=== PATIENT | male | born 1950 | race Two or more races ===

== ENCOUNTER 2019-02-14 12:06 | Inpatient (IN) | payer MEDICARE, MEDICAID ==
[~2019-02-14] VITALS: Ht 180.3 cm; Wt 226.0 kg
[2019-02-14] MEDS ORDERED: methylPREDNISolone SOD SUCC 125 MG/2 ML VL IV ONE (12:45)
[2019-02-14] MEDS ORDERED: ALBUTEROL SULF 2.5 MG/0.5ML(0.5%) NEB SOLN HHN ONE (12:45)
[2019-02-14] MEDS ORDERED: IPRATROPIUM BROM 0.5 MG/2.5ML INH SOL HHN ONE (12:45)
[2019-02-14 13:37] LABS: Basophils # (auto) 0 uL; Basophils % (auto) 0.1 % (0.0-2.0); Eosinophils # (auto) 0.1 uL; Eosinophils % (auto) 1.4 % (0.0-7.0); Lymphocytes # (auto) 1.1 uL; Lymphocytes % (auto) 12.1 % (10.0-50.0); Mean Corpuscular Hemoglobin 32.7 pg (28.0-32.0); Mean Corpuscular Hgb Conc. 33.2 g/dL (32.0-36.0); Mean Corpuscular Volume 98.5 fL (80.0-100.0); Monocytes # (auto) 0.6 uL; Monocytes % (auto) 6.4 % (0.0-12.0); Neutrophils # (auto) 7.5 uL; Platelet Count (auto) 166 10^3/uL (140-450); Red Blood Cells 4.88 10^6/uL (4.5-5.90); Red Cell Distribution Width 14.8 % (11.8-14.3); White Blood Cell 9.4 10^3/uL (4.4-10.8)
[2019-02-14 13:48] LABS: Magnesium 2.4 mg/dL (1.6-2.6)
[2019-02-14] MEDS ORDERED: FUROSEMIDE 40 MG/4 ML VIAL IV ONE (14:30)
[2019-02-14] MEDS ORDERED: ONDANSETRON HCL 4 MG/2 ML VIAL IV PRN (15:30)
[2019-02-14] MEDS ORDERED: HYDROcodone-ACET 5/325MG TAB PO PRN (15:30)
[2019-02-14] MEDS ORDERED: NITROGLYCERIN 0.4 MG SL TAB SL PRN (15:30)
[2019-02-14] MEDS ORDERED: MORPHINE SULF INJ 2 MG/ML SYRINGE 1ML IV PRN ×2 (15:30)
[2019-02-14] MEDS ORDERED: ACETAMINOPHEN 500 MG TAB PO PRN (15:30)
[2019-02-14 15:58] LABS: Anion Gap 6 (5-15); BUN/Creatinine Ratio 26.5; Blood Urea Nitrogen 18 mg/dL (7-18); Calcium 7.8 mg/dL (8.5-10.1); Carbon Dioxide 26 mmol/L (21-32); Chloride 107 mmol/L (98-107); GFR African American 149 mL/min; GFR Non-African American 123 mL/min; Glucose 114 mg/dL (74-106); Sodium 139 mmol/L (136-145)
[2019-02-14] MEDS: ALBUTEROL SULF 2.5 MG/0.5ML(0.5%) NEB SOLN NEB SCH (18:24)
[2019-02-14] MEDS: IPRATROPIUM BROM 0.5 MG/2.5ML INH SOL NEB SCH (18:25)
--- NOTE | 2019-02-14 18:41 | NUR ---
CLOSING SHIFT NOTE Patient is AOx4 in bed exhibiting no S/S of SOB, pain, or distress. Bed is locked and in lowest position. Call light within reach, told him to call if he requires assistance. Patient verbalized understanding. Will endorse care to principal embedded software engineer nurse. Signed: 02/14/19 at 1846 by MILAGRO LEIVA SN <Co-Signature Required> Co-Signed: 02/14/19 at 1846 by Kristin De Jesus RN
--- NOTE | 2019-02-14 18:42 | NUR ---
patient in the ER please disregard previous note, patient is still in the ER department .
[2019-02-14 19:30] VITALS: BP 126/65
--- NOTE | 2019-02-14 19:30 | NUR ---
Telemetry admit from ER SKY SELBY admitted to Telemetry unit after SBAR received. Patient oriented to RUSSELL MANN RN primary RN, unit, room, bed, and unit policies regarding patient care and visiting hours. Patient now on continuous telemetry monitoring, tele box # 31. Patient placed on bedside oxygen, weighed by bedscale and encouraged to call if they need something. All questions and concerns addressed, patient verbalized understanding.
[2019-02-14 19:40] VITALS: BP 123/52
[2019-02-14 21:04] VITALS: BP 126/65
[2019-02-14] MEDS ORDERED: PNEUMOCOCCAL VACC POLYS 25 MCG/0.5 ML VIAL IM ONE (21:15)
[2019-02-14] MEDS: METOPROLOL TARTRATE 25 MG TAB PO SCH (21:31)
[2019-02-14] MEDS ORDERED: ATORVASTATIN 20 MG TAB PO SCH (22:00)
--- NOTE | 2019-02-14 22:00 | NUR ---
Hospitalist paged: Hospitalist paged due to patient requesting to have a PRN cough medication just in case he begins to cough and cannot stop. Hospitalist returned paged immediately and new orders were received and verified.
[2019-02-15 05:11] VITALS: BP 113/67
[2019-02-15 05:13] LABS: Basophils # (auto) 0 uL; Eosinophils # (auto) 0 uL; Hematocrit 44.3 % (41.0-53.0); Hemoglobin 15.1 g/dL (13.5-17.5); Lymphocytes # (auto) 0.6 uL; Lymphocytes % (auto) 6.3 % (10.0-50.0); Mean Corpuscular Hemoglobin 33.5 pg (28.0-32.0); Mean Corpuscular Hgb Conc. 34.1 g/dL (32.0-36.0); Mean Corpuscular Volume 98.1 fL (80.0-100.0); Monocytes # (auto) 0.3 uL; Monocytes % (auto) 3.6 % (0.0-12.0); Neutrophils # (auto) 8.6 uL; Neutrophils % (auto) 90.1 % (37.0-80.0); Platelet Count (auto) 152 10^3/uL (140-450); Red Blood Cells 4.52 10^6/uL (4.5-5.90); White Blood Cell 9.6 10^3/uL (4.4-10.8)
[2019-02-15 05:26] LABS: Albumin 2.4 g/dL (3.4-5.0); Anion Gap 4 (5-15); Blood Urea Nitrogen 18 mg/dL (7-18); Calcium 7.6 mg/dL (8.5-10.1); Carbon Dioxide 27 mmol/L (21-32); Chloride 109 mmol/L (98-107); Glucose 162 mg/dL (74-106); Potassium 4.2 mmol/L (3.5-5.1); Sodium 140 mmol/L (136-145)
[2019-02-15 05:31] LABS: Alanine Aminotransferase 23 U/L (16-61); Alkaline Phosphatase 95 U/L (45-117); Aspartate Aminotransferase 31 U/L (15-37); Cholesterol 127 mg/dL (< 200); GFR African American 165 mL/min; GFR Non-African American 137 mL/min; HDL Cholesterol 63 mg/dL (40-59); LDL Cholesterol 70 mg/dL (< 100); Triglycerides 46 mg/dL (< 150)
[2019-02-15] MEDS: ALBUTEROL SULF 2.5 MG/0.5ML(0.5%) NEB SOLN NEB SCH ×3 (06:47→19:01)
[2019-02-15] MEDS: IPRATROPIUM BROM 0.5 MG/2.5ML INH SOL NEB SCH ×3 (06:47→19:00)
--- NOTE | 2019-02-15 07:42 | NUR ---
Opening Shift Note Assumed care of patient, sitting up in bed enjoying breakfast. Patient is awake and alert x4. No S/S of distress/SOB or pain. Specialty bed in lowest locked position, bed side rails up x2 and call light within reach. Instructed on POC and to call for assist PRN, will continue to monitor for changes Q1hr and PRN.
[2019-02-15 08:20] VITALS: BP 92/55
[2019-02-15 09:00] VITALS: BP 97/55
[2019-02-15] MEDS: FUROSEMIDE 40 MG/4 ML VIAL IV SCH (09:34)
[2019-02-15] MEDS: cefTRIAXone 1GM/50ML D5W 50 ML IV SCH (09:35)
[2019-02-15] MEDS: FAMOTIDINE 20 MG TAB PO SCH (09:36)
[2019-02-15] MEDS: ENOXAPARIN SOD 40 MG/0.4 ML SYRINGE SC SCH (09:36)
[2019-02-15] MEDS: METOPROLOL TARTRATE 25 MG TAB PO SCH (09:36)
[2019-02-15] MEDS ORDERED: AZITHROMYCIN 500MG/ 250ML 250 ML IV SCH (10:00)
[2019-02-15] MEDS ORDERED: POTASSIUM CHL 20 Meq TABLET PO ONE (10:30)
[2019-02-15] MEDS ORDERED: OPTISON 3ml Vial for INJ IV ONE (11:18)
[2019-02-15 13:00] VITALS: BP 138/84
[2019-02-15 16:57] VITALS: BP 120/77
--- NOTE | 2019-02-15 19:00 | NUR ---
Opening Shift Note Assumed care of patient, awake and alert. No S/S of distress/SOB or pain. Instructed on POC and to call for assist PRN, will continue to monitor for changes Q1hr and PRN.
[2019-02-15] MEDS: guaiFENesin-DM 100/10mg/5ml SYR PO PRN (19:44)
[2019-02-15 22:00] VITALS: BP 96/46
[2019-02-16 05:15] LABS: Calcium 7.7 mg/dL (8.5-10.1)
[2019-02-16 05:37] VITALS: BP 102/59
[2019-02-16] MEDS: ALBUTEROL SULF 2.5 MG/0.5ML(0.5%) NEB SOLN NEB SCH ×3 (06:38→18:25)
[2019-02-16] MEDS: IPRATROPIUM BROM 0.5 MG/2.5ML INH SOL NEB SCH ×3 (06:38→18:26)
--- NOTE | 2019-02-16 07:40 | NUR ---
Opening Note Received report from night auditor RN. Patient is awake, alert and oriented x4. No signs or symptoms of distress noted at this time. Patient is on 3L NC, shortness of breath on exertion. Patient denies pain at this time. Reviewed plan of care with patient, patient verbalized understanding. Bed in low and locked position, call light within reach. Will continue to monitor Q1 hour and PRN.
[2019-02-16 08:38] VITALS: BP 149/91
[2019-02-16] MEDS: cefTRIAXone 1GM/50ML D5W 50 ML IV SCH (09:27)
[2019-02-16] MEDS: POTASSIUM CHL 20 Meq TABLET PO SCH (09:28)
[2019-02-16] MEDS: FUROSEMIDE 40 MG/4 ML VIAL IV SCH (09:29)
[2019-02-16] MEDS: FAMOTIDINE 20 MG TAB PO SCH (09:29)
[2019-02-16] MEDS: ENOXAPARIN SOD 40 MG/0.4 ML SYRINGE SC SCH (09:34)
[2019-02-16] MEDS ORDERED: AZITHROMYCIN 250 MG TAB PO SCH (10:00)
--- NOTE | 2019-02-16 11:10 | NUR ---
urine sample collected and sent to lab
[2019-02-16 11:42] LABS: Urine WBC None Seen /hpf (0 - 3)
--- NOTE | 2019-02-16 11:58 | NUR ---
PT. FOUND OFF HIS O2, ON RA SITTING UP AT BEDSIDE VISITING WITH FAMILY. BS ARE DIMINISHED AND CLEAR. SP02 94%. NO RESP. DISTRESS NOTED, VITALS ARE STABLE. O2 IS ON 2LPM NC, AT BEDSIDE IF PT. IS IN NEED, FOR SOB. Addendum: 02/16/19 at 1204 by Shahrzad Lawson RT Amended: Links added.
[2019-02-16 12:27] LABS: Urine Bacteria NONE SEEN /hpf (None Seen); Urine Blood Negative /uL (Negative); Urine Specific Gravity 1.007 (1.001-1.035)
[2019-02-16 12:31] VITALS: BP 146/97
--- NOTE | 2019-02-16 13:12 | NUR ---
Dr. Sands at bedside Updating patient and family on plan of care. Will continue to monitor Q1 hour and PRN.
[2019-02-16 17:00] VITALS: BP 135/91
--- NOTE | 2019-02-16 18:40 | NUR ---
Respiratory note: ASKED PT IF HE WANTS TO WEAR BIPAP TONIGHT. PT REFUSED, AWARE TO NOTIFY RN IF BIPAP IS NEEDED. PT REMAINS ON ROOM AIR, NONCOMPLIANT WITH WEARING OXYGEN. NO RESPIRATORY DISTRESS NOTED, WILL CONTINUE TO MONITOR.
--- NOTE | 2019-02-16 19:30 | NUR ---
OPENING NOTE REPORT RECEIVED FROM DAY SHIFT RN PATIENT A/OX4, BRUNEIAN SPEAKING, ABLE TO VERBALIZE ALL NEEDS. PHYSICAL ASSESSMENT DONE-SEE INTERVENTIONS. NO SOB OR DISTRESS NOTED. PATIENT ON 3L NC, SPO2 AT 94%.FAMILY AT BEDSIDE. POC DISCUSSED, ALL QUESTIONS ANSWERED. WILL MONITOR Q1H PRN THROUGHOUT SHIFT, CALL LIGHT WITHIN REACH.
[2019-02-16] MEDS: guaiFENesin-DM 100/10mg/5ml SYR PO PRN (20:36)
[2019-02-16 22:00] VITALS: BP 106/68
--- NOTE | 2019-02-17 00:30 | NUR ---
Respiratory note: PAGED TO BEDSIDE FOR BIPAP. RADIOLOGIC TECHNOLOGIST MAMMOGRAM AT BEDSIDE, PT STATES HE IS ANXIOUS. PT NONCOMPLIANT WITH NASAL CANNULA, SPO2 93% ON ROOM AIR, NO RESPIRATORY DISTRESS NOTED. ASKED PT IF HE WANTS TO TRY BIPAP AND HE COMPLAINS OF FEELING SUFFOCATED WHEN WEARING THE BIPAP. PT GIVEN MED NEB TX AT THIS TIME. PT APPEARS LESS ANXIOUS, RN AWARE. WILL CONTINUE TO MONITOR.
[2019-02-17] MEDS: ALBUTEROL SULF 2.5 MG/0.5ML(0.5%) NEB SOLN NEB SCH ×3 (00:38→12:36)
[2019-02-17] MEDS: IPRATROPIUM BROM 0.5 MG/2.5ML INH SOL NEB SCH ×3 (00:38→12:36)
--- NOTE | 2019-02-17 00:38 | NUR ---
HOSPITALIST PAGED RE: PATIENT ANXIOUS AND REQUESTING "SOMETHING FOR ANXIETY"
[2019-02-17] MEDS: guaiFENesin-DM 100/10mg/5ml SYR PO PRN (00:49)
--- NOTE | 2019-02-17 00:52 | NUR ---
NONCOMPLIANCE PATIENT FOUND WITH NASAL CANNULA OFF AND PATIENT STATES HE GETS SOB. EDUCATED PATIENT TO KEEP OXYGEN ON TO PREVENT SOB. PATIENT VERBALIZED UNDERSTANDING
--- NOTE | 2019-02-17 00:56 | NUR ---
RECEIVED CALL BACK FROM HOSPITALIST RAFI NEW ORDER RECEIVED. ORDER READ BACK AND VERIFIED WILL CARRY OUT ORDER
[2019-02-17] MEDS ORDERED: TEMAZEPAM 15 MG CAP PO ONE (01:00)
[2019-02-17 05:00] VITALS: BP 142/84
--- NOTE | 2019-02-17 07:07 | NUR ---
CLOSING REPORT ENDORSED TO DAY SHIFT RN PATIENT IS SLEEPING, VISIBLE RISE AND FALL OF CHEST NOTED. NO S/S OF DISTRESS. CALL LIGHT WITHIN REACH
[2019-02-17 08:49] VITALS: BP 140/96
[2019-02-17] MEDS: ENOXAPARIN SOD 40 MG/0.4 ML SYRINGE SC SCH (10:00)
--- NOTE | 2019-02-17 10:15 | NUR ---
Dr. Holguin at bedside Updating patient on plan of care. Aircraft Structural Repairer at bedside. Will continue to monitor Q1 hour and PRN.
[2019-02-17] MEDS: POTASSIUM CHL 20 Meq TABLET PO SCH (10:17)
[2019-02-17] MEDS: FAMOTIDINE 20 MG TAB PO SCH (10:17)
[2019-02-17] MEDS: FUROSEMIDE 40 MG/4 ML VIAL IV SCH (10:18)
[2019-02-17] MEDS ORDERED: ALBUAER3 IN (11:17)
[2019-02-17] MEDS ORDERED: FURO1TAB31 PO (11:17)
[2019-02-17] MEDS ORDERED: POTA-220 PO (11:17)
[2019-02-17 12:21] VITALS: BP 140/96
--- NOTE | 2019-02-17 12:36 | NUR ---
Respiratory note: AT BEDSIDE FOR SCHEDULED MEDNEB TX. TX NOT GIVEN, PT REFUSING AT THIS TIME, WANTS TO EAT HIS LUNCH. NO S/S OF RESPIRATORY DISTRESS. ADVISED PT TO CALL FOR RT IF HE CHANGES HIS MIND.
[2019-02-17 13:00] VITALS: BP 161/92
--- NOTE | 2019-02-17 15:11 | NUR ---
DISCHARGE Discharge instructions given as ordered. Encouraged to follow up with primary care physician as instructed. All questions and concerns addressed. Patient verbalized understanding. Medication reconciliation form completed and copy given to patient. IV catheter removed, pressure dressing applied. vehicle monitor technician removed and sent back to ICU. Patient taken down to private vehicle via wheelchair, with all personal belongings, accompanied by staff and family members. No signs or symptoms of distress noted at this time.
== END 2019-02-17 15:40 | disposition home health service (06) | DRG 291 ==
LOC: ER 12:06 → TELE 12:07 → TELE-CENTR 19:28
PROVIDERS: ADMIT Nurse Practitioner Acute Care; ATTEND Internal Medicine
PROC: 5A09357 Assistance with Respiratory Ventilation, Less than 24 Consecutive Hours, Continuous Positive Airway Pressure (ICD-10-PCS; principal; 2019-02-14)
DX: I11.0 Hypertensive heart disease with heart failure (principal); J96.00 Acute respiratory failure, unspecified whether with hypoxia or hypercapnia; Z68.44 Body mass index [BMI] 60.0-69.9, adult; I50.43 Acute on chronic combined systolic (congestive) and diastolic (congestive) heart failure; E66.01 Morbid (severe) obesity due to excess calories; G47.33 Obstructive sleep apnea (adult) (pediatric); J45.909 Unspecified asthma, uncomplicated; Z91.19 Patient's noncompliance with other medical treatment and regimen; Z23 Encounter for immunization
CPT/HCPCS: 36415; 36600; 71045; 80048; 80053; 80061; 81001; 82805; 83036; 83605; 83735; 83880; 84484; 85025; 87040; 87070; 87205; 87804; 93005; 93306; 93970; 94640; 94644; 94660; 94761; 96365; 96367; 96375; G0378; J0696; Q9956

== ENCOUNTER 2022-05-05 23:26 | Inpatient (IN) | payer OTHER ==
[~2022-05-05] VITALS: Ht 180.3 cm; Wt 207.0 kg
[~2022-05-05 23:26] MED LIST: ALBUAER3 IN; FURO1TAB31 PO; POTA-220 PO
[2022-05-06 00:27] LABS: Basophils # (auto) 0 10 ^3/uL (0-0.2); Basophils % (auto) 0.6 % (0.0-2.0); Eosinophils # (auto) 0.4 10 ^3/uL (0-0.8); Eosinophils % (auto) 4.7 % (0.0-7.0); Hematocrit 48.6 % (41.0-53.0); Hemoglobin 16.4 g/dL (13.5-17.5); Lymphocytes # (auto) 1.8 10 ^3/uL (0.4-5.4); Lymphocytes % (auto) 22.8 % (10.0-50.0); Mean Corpuscular Hemoglobin 31.9 pg (28.0-32.0); Mean Corpuscular Hgb Conc. 33.7 g/dL (32.0-36.0); Mean Corpuscular Volume 94.7 fL (80.0-100.0); Monocytes # (auto) 1.1 10 ^3/uL (0-1.3); Monocytes % (auto) 13.9 % (0.0-12.0); Neutrophils # (auto) 4.5 10 ^3/uL (1.6-8.6); Nucleated Red Blood Cells % 0.1 %; Red Blood Cells 5.13 10^6/uL (4.5-5.90); Red Cell Distribution Width 13.8 % (11.8-14.3); White Blood Cell 7.7 10^3/uL (4.4-10.8)
[2022-05-06 00:41] LABS: Albumin 2.5 g/dL (3.4-5.0); BUN/Creatinine Ratio 14.7; Calcium 8.2 mg/dL (8.5-10.1); Potassium 4.1 mmol/L (3.5-5.1)
[2022-05-06 00:44] LABS: Total Protein 6.8 g/dL (6.4-8.2)
[2022-05-06] MEDS ORDERED: ENOXAPARIN SOD 100 MG/1 ML SYRINGE SC ONE (04:45)
[2022-05-06] MEDS ORDERED: MORPHINE SULFATE INJ 2 MG/ml SYRG IV PRN (09:00)
[2022-05-06] MEDS ORDERED: NITROGLYCERIN 0.4 MG SL TAB SL PRN (09:00)
[2022-05-06] MEDS ORDERED: ACETAMINOPHEN 325 MG TAB PO PRN (09:00)
[2022-05-06] MEDS ORDERED: FUROSEMIDE 20 MG/2 ML VIAL IV ONE (09:15)
[2022-05-06] MEDS ORDERED: ALBUTEROL SULF 2.5 MG/0.5ML(0.5%) NEB SOLN NEB PRN (09:15)
[2022-05-06] MEDS ORDERED: ASPirin 325 MG TAB PO ONE (09:15)
[2022-05-06 09:30] VITALS: BP 134/81
[2022-05-06] MEDS ORDERED: methylPREDNISolone SOD SUCC 125 MG/2 ML VL IV ONE (09:30)
[2022-05-06 09:57] LABS: Cholesterol 129 mg/dL (< 200); HDL Cholesterol 29 mg/dL (40-59); LDL Cholesterol 87 mg/dL (< 100); Triglycerides 79 mg/dL (< 150)
[2022-05-06] MEDS ORDERED: ALBUTEROL MEDNEB 2.5 mg/3ml NEB ONE (10:57)
[2022-05-06] MEDS: IPRATROPIUM BROM 0.5 MG/2.5ML INH SOL NEB SCH ×2 (11:03→18:53)
[2022-05-06] MEDS: ALBUTEROL SULF 2.5 MG/0.5ML(0.5%) NEB SOLN NEB SCH ×2 (11:03→18:53)
[2022-05-06] MEDS: ASPirin 81 mg TAB PO SCH (11:28)
[2022-05-06] MEDS: ZINC SULFATE 220mg CAP or TAB PO SCH (11:57)
[2022-05-06] MEDS: ASCORBIC ACID 500 MG TAB PO SCH ×2 (11:57→22:59)
[2022-05-06] MEDS: POTASSIUM CHL 20 Meq TABLET PO SCH (11:57)
[2022-05-06] MEDS: MULTIPLE VITAMIN TAB PO SCH (11:58)
[2022-05-06] MEDS: ENOXAPARIN SOD 40 MG/0.4 ML SYRINGE SC SCH (11:58)
[2022-05-06] MEDS: methylPREDNISolone SOD SUCC 125 MG/2 ML VL IV SCH (12:59)
[2022-05-06] MEDS: SODIUM CHLOR 0.9% PF (SALINE LOCK) 10ML VIAL/SYR IV SCH ×2 (14:13→23:04)
[2022-05-06 17:22] LABS: Urine Bacteria FEW /hpf (None Seen); Urine Blood Negative /uL (Negative); Urine Hyaline Cast MOD /lpf (0 - 2); Urine Mucus FEW (None Seen); Urine Specific Gravity 1.013 (1.001-1.035); Urine WBC 1 /hpf (0 - 3)
[2022-05-06] MEDS: cefTRIAXone 1GM/50ML D5W 50 ML IV SCH (17:49)
[2022-05-06] MEDS: AZITHROMYCIN 500MG/ 250ML 250 ML IV SCH (18:50)
[2022-05-06] MEDS: ATORVASTATIN 20 MG TAB PO SCH (22:59)
[2022-05-07] MEDS: ALBUTEROL SULF 2.5 MG/0.5ML(0.5%) NEB SOLN NEB SCH ×4 (00:44→18:40)
[2022-05-07] MEDS: IPRATROPIUM BROM 0.5 MG/2.5ML INH SOL NEB SCH ×4 (00:44→18:40)
[2022-05-07] MEDS: methylPREDNISolone SOD SUCC 125 MG/2 ML VL IV SCH ×3 (00:53→22:50)
[2022-05-07 05:22] LABS: Basophils # (auto) 0 10 ^3/uL (0-0.2); Basophils % (auto) 0.3 % (0.0-2.0); Eosinophils # (auto) 0 10 ^3/uL (0-0.8); Lymphocytes # (auto) 1.1 10 ^3/uL (0.4-5.4); Lymphocytes % (auto) 10.7 % (10.0-50.0); Mean Corpuscular Hemoglobin 32.9 pg (28.0-32.0); Mean Corpuscular Hgb Conc. 34.7 g/dL (32.0-36.0); Mean Corpuscular Volume 94.8 fL (80.0-100.0); Monocytes # (auto) 0.2 10 ^3/uL (0-1.3); Monocytes % (auto) 1.7 % (0.0-12.0); Neutrophils # (auto) 8.8 10 ^3/uL (1.6-8.6); Neutrophils % (auto) 87.3 % (37.0-80.0); Nucleated Red Blood Cells % 0.1 %; Red Blood Cells 5.17 10^6/uL (4.5-5.90); Red Cell Distribution Width 13.7 % (11.8-14.3); White Blood Cell 10.1 10^3/uL (4.4-10.8)
[2022-05-07] MEDS ORDERED: ALBUTEROL MEDNEB 2.5 mg/3ml NEB ONE ×3 (05:34→18:11)
[2022-05-07] MEDS ORDERED: IPRATROPIUM BROM 0.5 MG/2.5ML INH SOL ONE ×2 (05:35→11:59)
[2022-05-07 05:39] LABS: Albumin 2.5 g/dL (3.4-5.0); BUN/Creatinine Ratio 18.8; Calcium 8.6 mg/dL (8.5-10.1); Potassium 4.7 mmol/L (3.5-5.1)
[2022-05-07 05:42] LABS: Bilirubin, Total 0.7 mg/dL (0.2-1.0); Total Protein 6.8 g/dL (6.4-8.2)
[2022-05-07] MEDS: SODIUM CHLOR 0.9% PF (SALINE LOCK) 10ML VIAL/SYR IV SCH ×3 (06:00→22:48)
[2022-05-07] MEDS: AZITHROMYCIN 500MG/ 250ML 250 ML IV SCH (10:00)
[2022-05-07] MEDS: ZINC SULFATE 220mg CAP or TAB PO SCH (11:15)
[2022-05-07] MEDS: POTASSIUM CHL 20 Meq TABLET PO SCH (11:15)
[2022-05-07] MEDS: ASPirin 81 mg TAB PO SCH (11:30)
[2022-05-07] MEDS ORDERED: NITROGLYCERIN 0.4 MG SL TAB SL PRN (12:15)
[2022-05-07] MEDS ORDERED: MORPHINE SULFATE INJ 2 MG/ml SYRG IV PRN (12:15)
[2022-05-07] MEDS: ASCORBIC ACID 500 MG TAB PO SCH ×2 (12:51→22:51)
[2022-05-07] MEDS: ENOXAPARIN SOD 40 MG/0.4 ML SYRINGE SC SCH (12:51)
[2022-05-07] MEDS: MULTIPLE VITAMIN TAB PO SCH (12:52)
[2022-05-07] MEDS: cefTRIAXone 1GM/50ML D5W 50 ML IV SCH (13:11)
[2022-05-07 15:01] LABS: Hepatitis A Ab IgM Negative; Hepatitis B Core IgM Negative; Hepatitis C Antibody Negative (Negative)
[2022-05-07 18:00] VITALS: BP 128/55
[2022-05-07 18:09] VITALS: BP 128/55
[2022-05-07 22:00] VITALS: BP 121/65
[2022-05-07] MEDS: ATORVASTATIN 20 MG TAB PO SCH (22:50)
[2022-05-08] MEDS ORDERED: ALBUTEROL MEDNEB 2.5 mg/3ml NEB ONE ×4 (00:05→18:15)
[2022-05-08] MEDS: ALBUTEROL SULF 2.5 MG/0.5ML(0.5%) NEB SOLN NEB SCH ×4 (00:13→18:46)
[2022-05-08] MEDS: IPRATROPIUM BROM 0.5 MG/2.5ML INH SOL NEB SCH ×4 (00:13→18:45)
[2022-05-08 05:00] VITALS: BP 118/65
[2022-05-08] MEDS: SODIUM CHLOR 0.9% PF (SALINE LOCK) 10ML VIAL/SYR IV SCH ×3 (05:37→20:55)
[2022-05-08 08:00] VITALS: BP 115/50
[2022-05-08 08:32] VITALS: BP 115/50
[2022-05-08] MEDS: ENOXAPARIN SOD 40 MG/0.4 ML SYRINGE SC SCH (10:05)
[2022-05-08] MEDS: POTASSIUM CHL 20 Meq TABLET PO SCH (10:05)
[2022-05-08] MEDS: ASPirin 81 mg TAB PO SCH (10:05)
[2022-05-08] MEDS: ZINC SULFATE 220mg CAP or TAB PO SCH (10:05)
[2022-05-08] MEDS: MULTIPLE VITAMIN TAB PO SCH (10:05)
[2022-05-08] MEDS: ASCORBIC ACID 500 MG TAB PO SCH ×2 (10:06→20:55)
[2022-05-08] MEDS: cefTRIAXone 1GM/50ML D5W 50 ML IV SCH (11:58)
[2022-05-08 12:30] VITALS: BP 109/78
[2022-05-08] MEDS: AZITHROMYCIN 500MG/ 250ML 250 ML IV SCH (12:36)
[2022-05-08 16:33] VITALS: BP 134/68
[2022-05-08] MEDS: ATORVASTATIN 20 MG TAB PO SCH (20:55)
[2022-05-08 22:00] VITALS: BP 121/71
[2022-05-09] VITALS (7 sets, daily range): BP systolic 121–147; BP diastolic 72–92
[2022-05-09] MEDS ORDERED: ALBUTEROL MEDNEB 2.5 mg/3ml NEB ONE ×2 (00:02→05:52)
[2022-05-09] MEDS: IPRATROPIUM BROM 0.5 MG/2.5ML INH SOL NEB SCH ×4 (00:02→18:25)
[2022-05-09] MEDS: ALBUTEROL SULF 2.5 MG/0.5ML(0.5%) NEB SOLN NEB SCH ×4 (00:03→18:25)
[2022-05-09] MEDS: SODIUM CHLOR 0.9% PF (SALINE LOCK) 10ML VIAL/SYR IV SCH ×2 (06:20→14:24)
[2022-05-09] MEDS: cefTRIAXone 1GM/50ML D5W 50 ML IV SCH (09:22)
[2022-05-09] MEDS: MULTIPLE VITAMIN TAB PO SCH (10:37)
[2022-05-09] MEDS: AZITHROMYCIN 500MG/ 250ML 250 ML IV SCH (10:37)
[2022-05-09] MEDS: ZINC SULFATE 220mg CAP or TAB PO SCH (10:37)
[2022-05-09] MEDS: ENOXAPARIN SOD 40 MG/0.4 ML SYRINGE SC SCH (10:37)
[2022-05-09] MEDS: ASPirin 81 mg TAB PO SCH (10:37)
[2022-05-09] MEDS: ASCORBIC ACID 500 MG TAB PO SCH (10:37)
[2022-05-09] MEDS: POTASSIUM CHL 20 Meq TABLET PO SCH (10:37)
[2022-05-09] MEDS ORDERED: DOXY-332 PO (13:54)
[2022-05-09] MEDS ORDERED: APIX5TAB PO (13:54)
[2022-05-09] MEDS ORDERED: APIXABAN 5 MG TAB PO SCH (19:00)
[2022-05-11 15:00] LABS: Hepatitis C Antibody Negative (Negative)
== END 2022-05-09 19:50 | disposition home health service (06) | DRG 189 ==
LOC: ER 23:26 → INTOOBSV 05-06 09:01 → TELE 05-06 09:01 → OBSVTOIN 05-06 12:11 → INTOOBSV 05-06 12:11 → TELE-CENTR 05-07 17:21 → OBSVTOIN 05-08 09:10
PROVIDERS: ADMIT Nurse Practitioner Family; ATTEND Internal Medicine
DX: J96.21 Acute and chronic respiratory failure with hypoxia (principal); J18.9 Pneumonia, unspecified organism; I26.99 Other pulmonary embolism without acute cor pulmonale; Z68.44 Body mass index [BMI] 60.0-69.9, adult; E46 Unspecified protein-calorie malnutrition; E66.2 Morbid (severe) obesity with alveolar hypoventilation; Z20.822 Contact with and (suspected) exposure to COVID-19; R74.01 Elevation of levels of liver transaminase levels; Z79.82 Long term (current) use of aspirin
CPT/HCPCS: 36415; 36600; 71045; 80053; 80061; 80074; 81001; 82805; 83036; 83880; 84443; 84484; 85025; 85379; 86803; 87340; 87426; 87804; 93005; 93306; 93970; 94640; G0378; J0696

== ENCOUNTER 2024-01-12 04:27 | Emergency (ER) | payer MEDICARE, OTHER ==
[~2024-01-12] VITALS: Ht 175.3 cm; Wt 240.0 kg
[~2024-01-12 04:27] MED LIST changes: +APIX5TAB PO; +DOXY100C79 PO; -FURO1TAB31 PO; -POTA-220 PO
[2024-01-12] MEDS: IOHEXOL 350 MG/ML 100ML IJ ONE (05:15)
[2024-01-12 06:21] LABS: Basophils # (auto) 0 10 ^3/uL (0-0.2); Basophils % (auto) 0.4 % (0.0-2.0); Eosinophils # (auto) 0.2 10 ^3/uL (0-0.8); Eosinophils % (auto) 3.1 % (0.0-7.0); Hematocrit 44.7 % (41.0-53.0); Hemoglobin 15.4 g/dL (13.5-17.5); Lymphocytes # (auto) 1.4 10 ^3/uL (0.4-5.4); Lymphocytes % (auto) 23.9 % (10.0-50.0); Mean Corpuscular Hemoglobin 33.7 pg (28.0-32.0); Mean Corpuscular Hgb Conc. 34.3 g/dL (32.0-36.0); Mean Corpuscular Volume 98.3 fL (80.0-100.0); Monocytes # (auto) 0.7 10 ^3/uL (0-1.3); Monocytes % (auto) 11.3 % (0.0-12.0); Neutrophils # (auto) 3.6 10 ^3/uL (1.6-8.6); Neutrophils % (auto) 61.3 % (37.0-80.0); Nucleated Red Blood Cells % 0.1 %; Platelet Count (auto) 179 10^3/uL (140-450); Red Blood Cells 4.55 10^6/uL (4.5-5.90); Red Cell Distribution Width 14.3 % (11.8-14.3); White Blood Cell 5.8 10^3/uL (4.4-10.8)
[2024-01-12 06:24] LABS: Chloride 107 mmol/L (98-107); Potassium 4.1 mmol/L (3.5-5.1); Sodium 137 mmol/L (136-145)
[2024-01-12 06:25] LABS: Anion Gap 3 (5-15); Calcium 9.1 mg/dL (8.7-10.4); Carbon Dioxide 27 mmol/L (20-30)
[2024-01-12 06:31] LABS: BUN/Creatinine Ratio 9.5 (10.0-20.0); Blood Urea Nitrogen 7 mg/dL (9-23); Glucose 103 mg/dL (74-106)
[2024-01-12 08:42] LABS: COVID19 ANTIGEN SOFIA FIA NEGATIVE (NEGATIVE)
[2024-01-12 08:44] LABS: Rapid Influenza A Negative (Negative); Rapid Influenza B Negative (Negative)
[2024-01-12 09:16] VITALS: O2SAT 95
[2024-01-12 09:33] LABS: Urine Bacteria None Seen /hpf (None Seen)
[2024-01-12 09:47] LABS: Urine Blood 2+ /uL (Negative); Urine Clarity Clear (Clear); Urine Color Colorless (Yellow); Urine Hyaline Cast FEW /lpf (0 - 2); Urine Protein, UAD Negative (Negative); Urine Specific Gravity 1.003 (1.001-1.035); Urine Urobilinogen Normal (Negative); Urine WBC <1 /hpf (0 - 3); Urine pH 6.5 (5.0-9.0)
[2024-01-12] MEDS: FUROSEMIDE 20 MG/2 ML VIAL IV ONE (11:32)
[2024-01-12] MEDS: SPIRONOLACTONE 25 MG TAB PO ONE (11:32)
[2024-01-12] MEDS: ALBUTEROL SULF 2.5 MG/0.5ML(0.5%) NEB SOLN NEB ONE (11:39)
[2024-01-12] MEDS: IPRATROPIUM BROM 0.5 MG/2.5ML INH SOL NEB ONE (11:39)
[2024-01-12] MEDS: ONDANSETRON HCL 4 MG/2 ML VIAL IV ONE (16:42)
[2024-01-12] MEDS: MORPHINE SULFATE INJ 2 MG/ml SYRG IV ONE (16:42)
[2024-01-12] MEDS: DexAMETHasone SOD PHOS 10MG/1ML VIAL INJ IV ONE (17:19)
[2024-01-12] MEDS: CYANOCOBALAMIN (B-12) 1000 MCG/1 ML VIAL IM ONE (17:50)
[2024-01-13 07:50] VITALS: PULSE 60; RESP 19; TEMP 98.9; O2SAT 98
[2024-01-13 17:00] VITALS: BP 146/55; PULSE 72; RESP 20; O2SAT 98
== END 2024-01-13 19:18 | disposition home or self-care (01) ==
LOC: ER 04:27
DX: R53.1 Weakness (principal); R07.9 Chest pain, unspecified; J45.909 Unspecified asthma, uncomplicated; Z20.822 Contact with and (suspected) exposure to COVID-19; Z79.899 Other long term (current) drug therapy
CPT/HCPCS: 36415; 71045; 72040; 80048; 81001; 82962; 83605; 83880; 84484; 85025; 85379; 87426; 87804; 93005; 94640; 96372; 96374; 96375; 99285; J1100; J1940; J2270; J2405; J3420; Q9967